=== PATIENT | female | born 1995 | race Caucasian/White ===

== ENCOUNTER 2019-11-10 06:17 | Inpatient (IN) ==
[2019-11-10] MEDS ORDERED: PHENERGAN INJ 25 MG IM PRN ×2 (06:43→15:50)
[2019-11-10] MEDS ORDERED: DILAUDID INJ IVP PRN (06:43)
[2019-11-10] MEDS ORDERED: MORPHINE SULFATE INJ 2 MG INJ IVP PRN (06:43)
[2019-11-10] MEDS ORDERED: PITOCIN IVP ONE (06:43)
[2019-11-10] MEDS ORDERED: NUBAIN INJ 200 MG VIAL MULTIDOSE IVP PRN (06:43)
[2019-11-10] MEDS ORDERED: REGLAN INJ 10 MG VIAL IVP PRN (06:43)
[2019-11-10] MEDS ORDERED: D5LR 1L W PITOCIN 10 UNITS/L 10 UNITS/1,000 ML BAG IV PRN (06:43)
[2019-11-10] MEDS ORDERED: D5LR 1L W PITOCIN 10 UNITS/L 10 UNITS/1,000 ML BAG IV ONE (06:56)
[2019-11-10] MEDS ORDERED: D5 1/2 NS 1000 ML 1,000 ML IV ONE (06:57)
[2019-11-10] MEDS: D5 1/2 NS 1000 ML 1,000 ML IV SCH (07:00)
[2019-11-10] MEDS ORDERED: PITOCIN ONE (09:46)
[2019-11-10] MEDS ORDERED: D5 1/2 NS 1L W PITOCIN 20 UNITS/L 20 UNITS/1,000 ML BAG IV ONE (09:46)
[2019-11-10] MEDS ORDERED: MORPHINE SULFATE INJ 2 MG INJ ONE (12:03)
[2019-11-10] MEDS ORDERED: REGLAN INJ 10 MG VIAL ONE (13:56)
[2019-11-10] MEDS ORDERED: LR 1000 ML IV 1,000 ML IV ONE (14:10)
[2019-11-10] MEDS ORDERED: FENTANYL INJ 100 mcg ONE (14:11)
[2019-11-10] MEDS ORDERED: NAROPIN EPIDURAL 0.2% + FENTANYL 90MCG 60 ML EPI ONE (14:11)
[2019-11-10] MEDS ORDERED: MOTRIN TAB 800 MG PO PRN (15:50)
[2019-11-10] MEDS ORDERED: D5 1/2 NS 1000 ML 1,000 ML with PITOCIN 20 UNITS IV SCH ×2 (16:00)
[2019-11-10] MEDS ORDERED: DERMOPLAST SPRAY TOP PRN (16:24)
[2019-11-11] MEDS: D5 1/2 NS 1000 ML 1,000 ML IV SCH (01:25)
[2019-11-11 05:23] LABS: HEMATOCRIT 31.5 % (36.0-47.0); HEMOGLOBIN 10.3 g/dL (12.0-16.0)
--- NOTE | 2019-11-11 08:16 | NOTE.PROOB ---
progress Note OB- Subjective Data Subjective: No complaints, decreased lochia. Tolerating regular diet. No N/V. Ambulating well. No dysuria. Objective Data Result Diagrams: 11/11/19 05:04 Objective Data: CV= RRR no MRG Lungs=CTA Bilaterally Abd=(+) BS, soft, NTND, Fundus firm/NT/ at 3 cm below umbilicus. Ext=no edema, NT, no cords Assessment Assessment: routine pp care Plan Plan: She is asking to go home later today
[2019-11-11] MEDS ORDERED: PRENATAL PLUS PO SCH (09:00)
[2019-11-11] MEDS ORDERED: COLACE CAP 100 MG PO SCH (09:00)
[2019-11-11 16:31] VITALS: BP 132/67
== END 2019-11-11 17:15 | disposition home or self-care (01) | DRG 806 ==
LOC: LD 06:17 → MED/SURG 17:11
PROVIDERS: ADMIT Obstetrics & Gynecology; ATTEND Obstetrics & Gynecology
DX: Z37.0 Single live birth; Z3A.39 39 weeks gestation of pregnancy; O36.63X0 Maternal care for excessive fetal growth, third trimester, not applicable or unspecified; O26.893 Other specified pregnancy related conditions, third trimester; O36.0930 Maternal care for other rhesus isoimmunization, third trimester, not applicable or unspecified; O70.1 Second degree perineal laceration during delivery; Z01.818 Encounter for other preprocedural examination; Z01.812 Encounter for preprocedural laboratory examination
CPT/HCPCS: 36415; 59409; 80053; 80307; 81001; 85014; 85018; 85025; 86592; 86850; 86900; 86901; 87086; A4216; A4222; J2270; J2765; S0197; S5010